=== PATIENT | male | born 1985 | race Caucasian/White ===

== ENCOUNTER 2023-06-26 19:45 | Emergency (ER) | payer OTHER ==
[2023-06-26] MEDS ORDERED: Bacitracin Oint 1 GM U/D Packet TOP ONE (20:23)
[2023-06-26] MEDS ORDERED: Lidocaine 2% with EPINEPHrine 1:200,000 20 ML SDV INJECT ONE (20:23)
== END 2023-06-26 21:02 | disposition home or self-care (01) ==
LOC: DL.ED 19:45
DX: S61.411A Laceration without foreign body of right hand, initial encounter (principal); W26.8XXA Contact with other sharp object(s), not elsewhere classified, initial encounter
CPT/HCPCS: 12001; 99282; A9270; J3490